=== PATIENT | female | born 1945 | race Caucasian/White ===

== ENCOUNTER 2016-05-17 12:46 | Emergency (ER) | payer OTHER ==
[2016-05-17 13:18] LABS: URINE SOURCE CLEAN CATCH
[2016-05-17 13:30] LABS: BILIRUBIN URINE NEGATIVE (NEGATIVE); BLOOD URINE TRACE (NEGATIVE); COLOR YELLOW; GLUCOSE URINE NEGATIVE (NEGATIVE); LEUKOCYTES URINE LARGE (NEGATIVE); NITRITE URINE NEGATIVE (NEGATIVE); PH URINE 5.5; PROTEIN URINE TRACE mg/dL (NEGATIVE); SP GRAVITY URINE 1.011; TURBIDITY URINE TURBID (CLEAR); URINE MICRO REVIEW NEEDED? YES; UROBILINOGEN URINE NORMAL (NORMAL)
[2016-05-17 13:36] LABS: UR EPITHELIAL CELLS >10 /HPF (<10); URINE BACTERIA 1+ /HPF; URINE CULTURE NEEDED? YES; URINE RBC <10 /HPF (<10); URINE WBC TNTC /HPF (<10)
[2016-05-17 13:44] LABS: URINE CASTS NONE SEEN; URINE CRYSTALS NONE SEEN; URINE SMALL ROUND CELLS NONE SEEN
[2016-05-17] MEDS ORDERED: ROCEPHIN IM ONE (13:54)
[2016-05-17] MEDS ORDERED: XYLOCAINE-MPF 1% INJ ONE (13:54)
[2016-05-17] MEDS ORDERED: ZOFRAN ODT PO ONE (13:55)
[2016-05-17] MEDS ORDERED: PERCOCET-10 PO ONE (13:55)
--- NOTE | 2016-05-17 14:02 | Diag Imaging Result Document ---
PROCEDURE NAME: ABDOMEN FLAT/UPRIGHT - 05/17/2016 FLAT AND UPRIGHT ABDOMEN: FINDINGS: There is stool throughout the colon. There is no evidence of organomegaly, mass, gastric distention, or small bowel dilatation. IMPRESSION: Constipation.
--- NOTE | 2016-05-17 14:10 | PROVIDER DOCUMENTATION ---
HPI-Female /OB/Breast - General Chief Complaint: Abdominal Pain Stated Complaint: RT SIDE PAIN Time Seen by Provider: 05/17/16 13:45 Source: reports: patient Allergies/Adverse Reactions: Patient Allergies Allergy/AdvReac Type Severity Reaction Status Date / Time diazepam [From Valium] Allergy NAUSEA Verified 03/02/15 15:29 levofloxacin [From Levaquin] Allergy RASH Verified 03/02/15 15:29 Home Medications: Alendronate Sodium [Fosamax] 70 mg PO DIRECTED 10/08/14 Amiodarone [Cordarone] 100 mg PO DAILY 10/08/14 Aspirin EC 81 mg PO DAILY 10/08/14 Bumetanide 2 mg PO DAILY 10/08/14 Clonazepam 0.5 mg PO HS 10/08/14 Ergocalciferol (Vitamin D2) [Vitamin D] 50,000 unit PO DIRECTED 10/08/14 Escitalopram Oxalate [Lexapro] 20 mg PO DAILY 10/08/14 Levothyroxine Sodium [Synthroid] 88 mcg PO DAILY 10/08/14 Potassium Chloride E.r. [Klor-Con] 40 meq PO DAILY 10/08/14 - History of Present Illness-Female /OB Nature of Presenting Problem: Pt is 70 y/o F presents to the ED with UTI like symptoms. Pt states history of UTI's. Pt states suprapubic pain radiating to R flank. Pt states pain started yesterday but has worsened today. Pt states N but no V. Pt denies F. Does patient report she is ?: No Location of complaint: reports: suprapubic Radiation: reports: right flank Quality of Pain: reports: cramping Severity in ED: reports: mild Onset/Duration: reports: 24 hours ago Timing: reports: still present, getting worse Context/Activities at Onset: reports: light activity Vaginal Symptoms: reports: no symptoms Vaginal Bleeding Amount: None Urinary Symptoms: reports: no symptoms Related Symptoms: reports: no symptoms Leakage of Fluid: none Sexual intercourse history: reports: Not Active Contraception: reports: none Modifying Factors: improves with: nothing Associated Symptoms: reports: nausea. denies: anxiety, back/neck pain, chest pain, constipation, cough, diaphoresis, diarrhea, dizziness, fatigue, fever/ chills, joint pain, loss of appetite, malaise, muscle aches, rash, seizure, sensory/motor loss, swelling/mass in abdomen, syncope, vomiting, weakness, trouble walking Similar Symptoms Previously?: Yes Recently seen or treated by another doctor?: No Review of Systems - Adult - REVIEW OF SYSTEMS - ADULT Constitutional: denies: chills, fever Eyes: denies: blurred vision, double vision Ears, Nose, Mouth & Throat: denies: ear pain, nose pain, throat pain Cardiovascular: denies: chest pain, heart murmur, irregular heart rate Respiratory: denies: cough, shortness of breath, wheezing Gastrointestinal: reports: abdominal pain (suprapubic), nausea. denies: diarrhea, vomiting Genitourinary: denies: dysuria, hematuria Musculoskeletal: denies: bone pain, joint pain, neck pain Integumentary: denies: hives, itching Neurological: denies: dizziness/vertigo, headache/migraines Psychiatric: reports: no symptoms reported Endocrine: reports: no symptoms reported Hematologic/Lymphatic: reports: no symptoms reported Allergic/Immunologic: reports: no symptoms reported All Other Systems: Reviewed and Negative Past History - Adult - PAST MEDICAL HISTORY-ADULT Review of Records: reports: Nursing Assessment Review, Medications Reviewed, Social history reviewed & non-contributory. Major Childhood Illnesses: reports: denies history Cardiovascular: reports: A-Fib, pacemaker Respiratory: reports: denies history Gastrointestinal: reports: denies history Obstetrical/Gynecological: reports: denies history Genitourinary: reports: kidney disease Musculoskeletal: reports: denies history Neurological: reports: denies history Psychiatric: reports: anxiety Endocrine/Immune: reports: thyroid disorder Other Conditions: reports: denies history - PRIOR SURGERIES/PROCEDURES Surgical/Procedure History: reports: appendectomy, cholecystectomy, hysterectomy - IMMUNIZATION STATUS Childhood Immunizations: See Nurse Assessment Flu Vaccine: See Nurse Assessment - FAMILY HISTORY Family History: reviewed, not pertinent - SOCIAL HISTORY Smoking: denies Substance Use: denies Living Situation: family Physical Exam-General - PHYSICAL EXAM-ADULT Initial Vital Signs Reviewed: Yes - CONSTITUTIONAL General Appearance: alert, no apparent distress. negative: appears well (ill in appearance) - EYES Eyes: PERRL/EOMI, pink conjunctivae - HEAD, EARS, NOSE, MOUTH & THROAT HENMT: normocephalic/atraumatic, moist mucous membranes, normal ENT inspection - NECK Neck: non-tender, full range of motion, supple, normal inspection - RESPIRATORY Respiratory: chest non-tender, lungs clear, normal breath sounds - CARDIOVASCULAR Cardiovascular: normal peripheral pulses, regular rate, rhythm, no edema - GASTROINTESTINAL (ABDOMEN) Abdominal Exam: normal bowel sounds, soft, tenderness (suprapubic) - LYMPHATIC Lymphatic: no adenopathy - MUSCULOSKELETAL Back Exam: normal inspection, no vertebral tenderness, CVA tenderness (R) Extremity: normal range of motion, non-tender, normal gait - SKIN Integumentary: normal color, normal turgor, warm/dry - NEUROLOGIC Neurologic: transition mgr rn II-XII nml as tested, grossly normal, no motor/sensory deficits - PSYCHIATRIC Psych/Mental Status: normal mood/affect, normal thought content, normal thought process, oriented x 3 Progress - PLAN OF CARE/RESULTS Progress/Plan/Lab Results: Laboratory Tests 05/17/16 13:05 Urine Source CLEAN CATCH Urine Color YELLOW Urine Turbidity TURBID Urine pH 5.5 Ur Specific [place] 1.011 Urine Protein TRACE A Ur Glucose (Stick) NEGATIVE Ur Ketones (Stick) NEGATIVE Urine Blood TRACE A Urine Nitrite NEGATIVE Urine Bilirubin NEGATIVE Urobilinogen Dipstick NORMAL Urine Leukocytes LARGE A Urine WBC (Auto) TNTC A Urine RBC (Auto) <10 U Epithel Cells (Auto) >10 A Urine Bacteria (Auto) 1+ Urine Crystals NONE SEEN Small Round Cells NONE SEEN Urine Casts NONE SEEN Urine Yeast-like Cells NONE SEEN Orders Category Date Time Status ABDOMEN FLAT/UPRIGHT [RAD] Stat Exams 05/17/16 13:13 Draft UA NIMS W/REFLEX CULT [URINALYSIS] Stat Lab 05/17/16 13:05 Completed URINE CULTURE [RM] Routine Lab 05/17/16 13:47 Received URINE MANUAL MICROSCOPIC [URINALYSIS] Stat Lab 05/17/16 13:05 Completed CefTRIAXONE [Rocephin] Med 05/17/16 13:54 Discontinued 1 gm IM NOW ONE Lidocaine 1% Pf [Xylocaine-Mpf 1%] Med 05/17/16 13:54 Discontinued 5 ml INJ NOW ONE Ondansetron Odt [Zofran Odt] Med 05/17/16 13:55 Discontinued 4 mg PO NOW ONE Oxycodone/APAP 10 mg/325 mg [Percocet-10] Med 05/17/16 13:55 Discontinued 1 each PO NOW ONE Vital Signs - 24 hr 05/17/16 12:53 Temperature 98.1 F Pulse Rate 70 Respiratory 18 Rate Blood Pressure 123/73 O2 Sat by Pulse 100 Oximetry - XRAY 1 XRAY: Bilateral XRAY Study: Abdomen Impression: Abnormal XRAY Interpretation: constipation Departure - Departure Time of Disposition Order: 14:16 DIAGNOSIS: Pyelonephritis UTI (urinary tract infection) Qualifiers: Urinary tract infection type: site unspecified Hematuria presence: without hematuria Qualified Code(s): N39.0 - Urinary tract infection, site not specified Disposition: HOME 01 Certified Medical Emergency: Emergent Condition: Stable Prescriptions: Levofloxacin [Levaquin] 750 mg PO DAILY 10 Days Hydrocodone/Acetaminophen [[place] 7.5-325 Tablet] 1 each PO TID PRN PRN #15 tablet PRN Reason: Pain Phenazopyridine [Pyridium] 100 mg PO TID #20 tablet Ondansetron [Zofran Odt] 4 mg SL 4XDAY PRN PRN #14 tab.rapdis PRN Reason: Nausea And Vomiting Referrals: Rolando Benson MD [Primary Care Provider] - Attestation - Scribe Verification/Attestation Scribe:: Amber Morillo Acting as Scribe for:: Sly Castellanos Scribe documention review:: This chart was documented by a scribe and accurately reflects the service the provider performed and the decisions made by the provider.
[2016-05-17 15:03] VITALS: BP 119/74
== END 2016-05-17 15:03 | disposition home or self-care (01) ==
LOC: ED 12:46
DX: N12 Tubulo-interstitial nephritis, not specified as acute or chronic (principal); N39.0 Urinary tract infection, site not specified; R10.9 Unspecified abdominal pain; R11.0 Nausea; R10.819 Abdominal tenderness, unspecified site; I48.91 Unspecified atrial fibrillation; E07.9 Disorder of thyroid, unspecified; F41.9 Anxiety disorder, unspecified; Z79.899 Other long term (current) drug therapy; Z79.82 Long term (current) use of aspirin; Z95.0 Presence of cardiac pacemaker; Z87.440 Personal history of urinary (tract) infections
CPT/HCPCS: 74020; 81001; 87088; 96372; J0696